=== PATIENT | female | born 2000 | race Caucasian/White ===

== ENCOUNTER 2018-05-30 19:17 | Emergency (ER) | payer MEDICAID, SELFPAY ==
[2018-05-30 19:18] VITALS: BP 128/80; PULSE 86; RESP 17; TEMP 36.6; O2SAT 99; BMI 24.1
--- NOTE | 2018-05-30 20:05 | ED.VISSUMM ---
- ER Visit Summary Date of Service: 05/30/18 Chief Complaint: Medical evaluation History of Present Illness: The patient is a 18 F here for evaluation mother for multiple complaints. Symptoms for years. Reports indigestion discomfort in her epigastric chest region. States would have aches in the joints of hands and feet. States symptoms worsen more in the wintertime. States her hand does get cold. They saw physicians in [place]. She is moved in with her mother. Has appointment with her mother's physician upcoming. Family history of rheumatoid arthritis in grandmother and her father. She does has a positive MT HFR diagnosed with mother with factor V Leiden. Currently denies any symptoms. Physical Examination: General: Alert and oriented ?3, no acute distress HEENT: Normocephalic, atraumatic. Moist mucosa membranes Neck: supple, nontender. Cardiovascular: Regular rate and rhythm, no murmurs Respiratory: Normal breath sounds, symmetric, no distress Abdomen: Soft, nontender, nondistended Extremities: Nontender, no edema, pulses intact ?4 Neuro: no focal neurological deficits. Test Results: [] Emergency Department Course and Treatment: Vital stable, currently asymptomatic. Patient's history concerns for Raynauds phenomenon. However there is history of rheumatoid arthritis in the family. She would need a workup as an outpatient. Patient and mother reassured. Prescription for omeprazole written to help with symptoms. Treatment Plan: [] Disposition: Discharge Impression: Raynauds syndrome This note was generated with [employer] dictation software. It may contain incorrect words, spelling, and punctuation that were not noted in review of the chart prior to signing ED Disposition - Plan for ED Patient: Disposition: Home or Assisted Living Chief Complaint: Chest Other Diagnosis: Raynauds phenomenon Instructions: Raynaud's Disease Prescriptions: Omeprazole 40 mg PO DAILY #30 capsule. Referrals: Lupillo Jansen DO [Primary Care Provider] - Keep Ge[facility] appointment Additional Instructions: Symptoms concern of Raynauds phenomenon. However will need workup as an outpatient.
--- NOTE | 2018-05-30 20:09 | ED.DCSUM_ITS ---
- ER Visit Summary Date of Service: 05/30/18 Chief Complaint: Medical evaluation History of Present Illness: The patient is a 18 F here for evaluation mother for multiple complaints. Symptoms for years. Reports indigestion discomfort in her epigastric chest region. States would have aches in the joints of hands and feet. States symptoms worsen more in the wintertime. States her hand does get cold. They saw physicians in [place]. She is moved in with her mother. Has appointment with her mother's physician upcoming. Family history of rheumatoid arthritis in grandmother and her father. She does has a positive MT HFR diagnosed with mother with factor V Leiden. Currently denies any symptoms. Physical Examination: General: Alert and oriented ?3, no acute distress HEENT: Normocephalic, atraumatic. Moist mucosa membranes Neck: supple, nontender. Cardiovascular: Regular rate and rhythm, no murmurs Respiratory: Normal breath sounds, symmetric, no distress Abdomen: Soft, nontender, nondistended Extremities: Nontender, no edema, pulses intact ?4 Neuro: no focal neurological deficits. Test Results: [] Emergency Department Course and Treatment: Vital stable, currently asymptomatic. Patient's history concerns for Raynauds phenomenon. However there is history of rheumatoid arthritis in the family. She would need a workup as an outpatient. Patient and mother reassured. Prescription for omeprazole written to help with symptoms. Treatment Plan: [] Disposition: Discharge Impression: Raynauds syndrome This note was generated with [employer] dictation software. It may contain incorrect words, spelling, and punctuation that were not noted in review of the chart prior to signing ED Disposition - Plan for ED Patient: Disposition: Home or Assisted Living Chief Complaint: Chest Other Diagnosis: Raynauds phenomenon Instructions: Raynaud's Disease Prescriptions: Omeprazole 40 mg PO DAILY #30 capsule. Referrals: Lupillo Jansen DO [Primary Care Provider] - Keep Ge[facility]any appointment Additional Instructions: Symptoms concern of Raynauds phenomenon. However will need workup as an outpatient.
[2018-05-30 20:36] VITALS: BP 120/81; PULSE 79; O2SAT 98
== END 2018-05-30 20:38 | disposition home or self-care (01) ==
PROVIDERS: Emergency Provider Emergency Medicine; Family Provider Preventive Medicine Occupational Medicine; PCP Preventive Medicine Occupational Medicine
DX: I73.00 Raynaud's syndrome without gangrene (principal); D68.51 Activated protein C resistance
CPT/HCPCS: 99282